=== PATIENT | female | born 1945 | race Caucasian/White ===

== ENCOUNTER → 2019-01-15 | Outpatient (CLI) | payer MEDICARE ==
[~2019-01-15] MED LIST: ACHYD1T PO; CIPR500T78 PO; DULO60CA6 PO; HYDR-3714 PO; HYDR-3876 PO; HYOS0.1216 PO; MELO-195 PO; NITR-65 PO; NITR100C3 PO; NITR100C44 PO; NITR50CA4 PO; OMEP20CA12 PO; PHEN200T27 PO; PREG225C PO; TORADOL PO
--- NOTE | 2019-01-15 16:13 | Diagnostic Imaging Report ---
EXAM: LUMBAR SPINE 2 OR 3 VIEW INDICATION: Low back pain. COMPARISON: None. FINDINGS: There are five lumbar-type vertebral bodies. Grade 1 anterolisthesis of L4 on L5. Moderate diffuse degenerative endplate changes and facet arthropathy. Age-indeterminate superior endplate compression deformity of T12 results in approximately 20% height loss. Advanced lower lumbar facet arthropathies, greatest at L5-S1. Advanced atherosclerotic calcifications. The visualized pelvis is intact. IMPRESSION: 1. Superior endplate compression deformity of T12 approximately 20% is age-indeterminate. This could be better evaluated with MRI. 2. Moderate spondylotic changes including grade 1 anterolisthesis of L4 on L5. Advanced lower lumbar facet arthropathy. Dictated by: Dictated on workstation # [id number]
== END ==
LOC: RAD FS 15:32
PROVIDERS: ATTEND Nurse Practitioner Family
DX: M47.816 Spondylosis without myelopathy or radiculopathy, lumbar region (principal); M43.16 Spondylolisthesis, lumbar region; M46.86 Other specified inflammatory spondylopathies, lumbar region; M43.8X4 Other specified deforming dorsopathies, thoracic region
CPT/HCPCS: 72100

== ENCOUNTER → 2019-02-03 | Outpatient (CLI) | payer MEDICARE ==
[~2019-02-03] MED LIST changes: +GADOBUTROL 7.5 MMOL/7.5 ML (GADAVIST) VIAL IV ONE
--- NOTE | 2019-02-03 15:35 | Diagnostic Imaging Report ---
CLINICAL INDICATION: Patient with low back pain that radiates down both legs x3 weeks. No known injury. EXAM: MRI of the lumbar spine performed without and with 9 cc of Gadavist IV contrast. Sagittal T2, sagittal T1, sagittal T1 fat-sat, sagittal STIR, axial T1, axial T2, axial T1 post IV contrast, sagittal T1 post IV contrast, and sagittal T1 fat-sat post IV contrast. COMPARISON: X-ray of the lumbar spine dated 01/15/2019. FINDINGS: There is no abnormal IV contrast enhancement seen on this exam. There is no acute lumbar spine fracture. There is intraosseous hemangioma involving the left upper aspect of the T11 vertebra. Otherwise, there is no significant abnormal signal involving the lumbar spine. The visualized portions of the distal thoracic spinal cord, conus medullaris, and cauda equina nerve roots are unremarkable. The conus medullaris tip is seen at the L1-L2 intervertebral level. There are mildly hypertrophic spurs seen throughout the thoracolumbar spine. There is no significant paraspinal soft tissue abnormality. T11-T12: There is diffuse disc bulge and bilateral facet arthropathy. There is mild right neural foramen narrowing and mild central canal narrowing. T12-L1: There is mild bilateral facet arthropathy. There is no significant central spinal canal or neural foramen narrowing. L1-L2: There is minimal posterior disc bulge with moderate left facet arthropathy/hypertrophy and mild right facet arthropathy. There is left-sided ligamentum flavum buckling. There is no significant central canal narrowing. There is pbad-bl-cewqvtau right neural foramen narrowing and moderate left neural foramen narrowing. L2-L3: There is diffuse disc bulge with moderate loss of intervertebral disc height with moderate bilateral facet arthropathy. There is farc-ev-uqfvxwwr central canal narrowing, hunp-sa-ndhrsozw right neural foramen narrowing, and severe left neural foramen narrowing. L3-L4: There is diffuse disc bulge with superimposed central posterior disc extrusion/herniation with annular tear posteriorly. There is moderate loss of intervertebral disc height. There is wnop-rd-wraxvhbt bilateral facet arthropathy and ligamentum flavum buckling. There is moderate central canal stenosis, severe right neural foramen narrowing, and vocihnvg-kv-xrhjoa left neural foramen narrowing. L4-L5: There is grade 1 anterolisthesis of L4 on L5. There is mild diffuse disc bulge with severe bilateral facet arthropathy/hypertrophy. There is utizqbbw-tr-xkioso central canal narrowing. There is cpxqjqtq-bg-oehjos right neural foramen narrowing and mild left neural foramen narrowing. L5-S1: There is a mild diffuse disc bulge with moderate bilateral facet arthropathy with hypertrophic changes on the right side. There is no significant central canal narrowing. There is severe right neural foramen narrowing and no significant left neural foramen narrowing. IMPRESSION: 1: There is multilevel lumbar spine degenerative disease which is described in detail above. 2: There is grade 1 anterolisthesis of L4 on L5 with no pars defect. Dictated by: Dictated on workstation # [id number]
== END ==
LOC: RAD 13:41
PROVIDERS: ATTEND Nurse Practitioner Family
DX: M51.27 Other intervertebral disc displacement, lumbosacral region (principal); M46.97 Unspecified inflammatory spondylopathy, lumbosacral region; M43.16 Spondylolisthesis, lumbar region; M48.07 Spinal stenosis, lumbosacral region
CPT/HCPCS: 36415; 72158; 82565

== ENCOUNTER 2019-03-30 09:38 | Emergency (ER) | payer MEDICARE ==
[~2019-03-30] VITALS: Ht 157 cm; Wt 101.5 kg
[~2019-03-30 09:38] MED LIST changes: -GADOBUTROL 7.5 MMOL/7.5 ML (GADAVIST) VIAL IV ONE
[2019-03-30 10:00] LABS: WHITE BLOOD COUNT 8.1 10^3/uL (4.3-11.0)
[2019-03-30] MEDS ORDERED: NS IV 1000 ML 1,000 ML IV SCH (10:00)
[2019-03-30] MEDS ORDERED: DIAZEPAM 5 MG (VALIUM) TABLET PO ONE (10:00)
[2019-03-30] MEDS ORDERED: MECLIZINE 25 MG (ANTIVERT) TAB PO ONE (10:00)
[2019-03-30 10:01] LABS: BASOPHILS % (AUTO) 1 % (0-10); EOSINOPHILS % (AUTO) 1 % (0-10); HEMATOCRIT 39 % (35-52); HEMOGLOBIN 12.9 G/DL (11.5-16.0); LYMPHOCYTES % (AUTO) 36 % (12-44); MEAN CORPUSCULAR HEMOGLOBIN 30 PG (25-34); MEAN CORPUSCULAR HGB CONC 33 G/DL (32-36); MEAN CORPUSCULAR VOLUME 92 FL (80-99); MEAN PLATELET VOLUME 12.3 FL (7.4-10.4); MONOCYTES % (AUTO) 6 % (0-12); NEUTROPHILS % (AUTO) 56 % (42-75); PLATELET COUNT 201 10^3/uL (130-400)
[2019-03-30 10:02] LABS: BASOPHILS # (AUTO) 0.1 10^3/uL (0.0-0.1); EOSINOPHILS # (AUTO) 0.1 10^3/uL (0.0-0.3); LYMPHOCYTES # (AUTO) 2.9 X 10^3 (1.0-4.0); MONOCYTES # (AUTO) 0.5 X 10^3 (0.0-1.0); NEUTROPHILS # (AUTO) 4.5 X 10^3 (1.8-7.8)
[2019-03-30 10:24] LABS: PROTHROMBIN TIME PATIENT 13.2 SEC (12.2-14.7)
[2019-03-30 10:32] LABS: POTASSIUM 4.1 MMOL/L (3.6-5.0); SODIUM 138 MMOL/L (135-145)
[2019-03-30 10:33] LABS: ALANINE AMINOTRANSFERASE 15 U/L (0-55); ALKALINE PHOSPHATASE 93 U/L (40-136); BILIRUBIN,TOTAL 0.4 MG/DL (0.1-1.0); BUN/CREATININE RATIO 14; CALCIUM 9.5 MG/DL (8.5-10.1); CARBON DIOXIDE 23 MMOL/L (21-32); CHLORIDE 102 MMOL/L (98-107); CREATININE SERUM 0.63 MG/DL (0.60-1.30); GFR ESTIMATED > 60; GLUCOSE 105 MG/DL (70-105); TOTAL PROTEIN 7.4 GM/DL (6.4-8.2)
[2019-03-30 10:34] LABS: ALBUMIN 4.1 GM/DL (3.2-4.5)
--- NOTE | 2019-03-30 10:35 | ED General ---
General Chief Complaint: Dizziness/Syncope Stated Complaint: DIZZINESS; GAIT PROBLEM Nursing Triage Note: Patient has dizziness that started yesterday after bending over to pick something up. States the room was spinning and it made her nauseous and she did vomit once. The dizziness is better this morning but feels like her gait is off and she is unsteady when walking. Nursing Sepsis Screen: No Definite Risk History of Present Illness Date Seen by Provider: Mar 30, 2019 Time Seen by Provider: 10:31 Initial Comments Patient presenting to emergency department for evaluation of dizziness that has been going on since yesterday. She says in the morning yesterday she bent over to pick something up and as soon as she stood back up she felt intense vertiginous sensation that made her nauseated and threw up twice. The vertigo continued most of yesterday and it worsens whenever she would move or turn her head. She says it was better this morning when she woke up but she still had some room spinning sensation whenever she would try and walk but it seems to be improving as she was able to ambulate safely from her car to the emergency department entrance and then to room 1 with no obvious abnormal gait. She says that she is having no pain fevers chills shortness of breath vision changes difficulty speaking or confusion. She is in no obvious distress with normal vital signs. Allergies and Home Medications Allergies Coded Allergies: acetaminophen (Unverified Allergy, Mild, HIVES, 11/01/14) hydrocodone (Unverified Allergy, Mild, HIVES, 11/01/14) Home Medications Duloxetine Hcl 60 Mg Capsule.dr, 60 MG PO DAILY, (Reported) Meloxicam 15 Mg Tablet, 15 MG PO DAILY, (Reported) Nitrofurantoin/Nitrofuran Mac 100 Mg Capsule, 100 MG PO BID Prescribed by: FERDINAND JJ on 11/01/146 Omeprazole 20 Mg Capsule.dr, 20 MG PO DAILY, (Reported) Pregabalin 225 Mg Capsule, 225 MG PO BID, (Reported) [Toradol] , 10 MG PO Q6H Prescribed by: FERDINAND JJ on 11/01/14 1407 Patient Home Medication List Home Medication List Reviewed: Yes Review of Systems Review of Systems Constitutional: no symptoms reported EENTM: no symptoms reported Respiratory: no symptoms reported Cardiovascular: no symptoms reported Gastrointestinal: no symptoms reported Genitourinary: no symptoms reported Musculoskeletal: no symptoms reported Skin: no symptoms reported Psychiatric/Neurological: Other (dizziness) All Other Systems Reviewed Negative Unless Noted: Yes Past Dkrwfvt-Buulak-Kdkytj Hx Patient Social History Alcohol Use: Denies Use Recreational Drug Use: No Smoking Status: Never a Smoker 2nd Hand Smoke Exposure: No Recent Foreign Travel: No Contact w/Someone Who Travel: No Recent Infectious Disease Expo: No Physical Abuse: No Sexual Abuse: No Mistreated: No Fear: No Immunizations Up To Date Date of Pneumonia Vaccine: Mar 02, 2013 Seasonal Allergies Seasonal Allergies: No Past Medical History Surgeries: Yes (BILAT TKR, KIDNEY STONE X3) Respiratory: No Cardiac: No Neurological: No Genitourinary: Yes Kidney Stones Gastrointestinal: Yes (CONSTIPATION) Musculoskeletal: Yes (ARTHRITIS, FIBROMAGLIA) Degenerate Disk Disease, Arthritis, Fibromyalgia, Chronic Back Pain Endocrine: No HEENT: No Cancer: No Psychosocial: No Integumentary: No Blood Disorders: No Physical Exam Vital Signs Vital Signs - First Documented 03/30/19 09:44 Temp 35.7 Pulse 61 Resp 18 B/P (MAP) 178/77 (110) Pulse Ox 97 Capillary Refill : Less Than 3 Seconds Height, Weight, BMI Height: 5'2.00" Weight: 205lbs. oz. 92.516616ds; 41.00 BMI Method: General Appearance: No Apparent Distress, WD/WN Eyes: Bilateral Eye Normal Inspection HEENT: PERRL/EOMI, TMs Normal Neck: Supple Respiratory: Lungs Clear, No Respiratory Distress Cardiovascular: Regular Rate, Rhythm Gastrointestinal: Non Tender, Soft Back: Normal Inspection Extremity: Normal Capillary Refill Neurologic/Psychiatric: Alert, Oriented x3, No Motor/Sensory Deficits, Normal Mood/Affect, Other (Finger to nose, heel to kaba and gait all normal.) Skin: Warm/Dry Progress/Results/Core Measures Suspected Sepsis Recent Fever Within 48 Hours: No Infection Criteria Present: None New/Unexplained Altered Menta: No Sepsis Screen: No Definite Risk SIRS Temperature: Pulse: 61 Respiratory Rate: 18 Laboratory Tests 03/30/19 09:52: White Blood Count 8.1 Blood Pressure 178 /77 Mean: 110 Laboratory Tests 03/30/19 09:52: Creatinine 0.63, Platelet Count 201, Total Bilirubin 0.4 03/30/19 10:00: INR Comment 1.0 Results/Orders Lab Results Laboratory Tests Test 03/30/19 09:52 03/30/19 10:00 03/30/19 10:45 Range/Units White Blood Count 8.1 4.3-11.0 10^3/uL Red Blood Count 4.25 L 4.35-5.85 10^6/uL Hemoglobin 12.9 11.5-16.0 G/DL Hematocrit 39 35-52 % Mean Corpuscular Volume 92 80-99 FL Mean Corpuscular Hemoglobin 30 25-34 PG Mean Corpuscular Hemoglobin Concent 33 32-36 G/DL Red Cell Distribution Width 13.0 10.0-14.5 % Platelet Count 201 130-400 10^3/uL Mean Platelet Volume 12.3 H 7.4-10.4 FL Neutrophils (%) (Auto) 56 42-75 % Lymphocytes (%) (Auto) 36 12-44 % Monocytes (%) (Auto) 6 0-12 % Eosinophils (%) (Auto) 1 0-10 % Basophils (%) (Auto) 1 0-10 % Neutrophils # (Auto) 4.5 1.8-7.8 X 10^3 Lymphocytes # (Auto) 2.9 1.0-4.0 X 10^3 Monocytes # (Auto) 0.5 0.0-1.0 X 10^3 Eosinophils # (Auto) 0.1 0.0-0.3 10^3/uL Basophils # (Auto) 0.1 0.0-0.1 10^3/uL Sodium Level 138 135-145 MMOL/L Potassium Level 4.1 3.6-5.0 MMOL/L Chloride Level 102 98-107 MMOL/L Carbon Dioxide Level 23 21-32 MMOL/L Anion Gap 13 5-14 MMOL/L Blood Urea Nitrogen 9 7-18 MG/DL Creatinine 0.63 0.60-1.30 MG/DL Estimat Glomerular Filtration Rate > 60 BUN/Creatinine Ratio 14 Glucose Level 105 70-105 MG/DL Calcium Level 9.5 8.5-10.1 MG/DL Corrected Calcium 9.4 8.5-10.1 MG/DL Magnesium Level 2.0 1.6-2.4 MG/DL Total Bilirubin 0.4 0.1-1.0 MG/DL Aspartate Amino Transf (AST/SGOT) 20 5-34 U/L Alanine Aminotransferase (ALT/SGPT) 15 0-55 U/L Alkaline Phosphatase 93 40-136 U/L Troponin I < 0.30 <0.30 NG/ML Pro-B-Type Natriuretic Peptide 497.9 H <75.0 PG/ML Total Protein 7.4 6.4-8.2 GM/DL Albumin 4.1 3.2-4.5 GM/DL Prothrombin Time 13.2 12.2-14.7 SEC INR Comment 1.0 0.8-1.4 Activated Partial Thromboplast Time 27 24-35 SEC Urine Color PALE YELLOW Urine Clarity CLEAR Urine pH 7.5 5-9 Urine Specific [place] <=1.005 1.016-1.022 Urine Protein NEGATIVE NEGATIVE Urine Glucose (UA) NEGATIVE NEGATIVE Urine Ketones NEGATIVE NEGATIVE Urine Nitrite NEGATIVE NEGATIVE Urine Bilirubin NEGATIVE NEGATIVE Urine Urobilinogen 0.2 NORMAL MG/DL Urine Leukocyte Esterase 1+ H NEGATIVE Urine RBC (Auto) NEGATIVE NEGATIVE Urine RBC NONE /HPF Urine WBC 0-2 /HPF Urine Squamous Epithelial Cells 0-2 /HPF Urine Crystals NONE /LPF Urine Bacteria NEGATIVE /HPF Urine Casts NONE /LPF Urine Mucus NONE /LPF Urine Culture Indicated YES My Orders Orders - ISRAEL HARRY DO Cbc With Automated Diff (03/30/19 09:52) Comprehensive Metabolic Panel (03/30/19 09:52) Ua Culture If Indicated (03/30/19 09:52) Troponin I Fs (03/30/19 09:52) Magnesium (03/30/19 09:52) Partial Thromboplastin Time (03/30/19 09:52) Probnp Fs (03/30/19 09:52) Protime With Inr (03/30/19 09:52) Ekg Tracing (03/30/19 09:52) Ct Head Wo (03/30/19 09:52) Ns Iv 1000 Ml (Sodium Chloride 0.9%) (03/30/19 10:00) Diazepam Tablet (Valium Tablet) (03/30/19 10:00) Meclizine Tablet (Antivert Tablet) (03/30/19 10:00) Urine Culture (03/30/19 10:45) Medications Given in ED Current Medications Medications Dose Ordered Sig/Chucky Route Start Time Stop Time Status Last Admin Dose Admin Diazepam 5 mg ONCE ONCE PO 03/30/19 10:00 03/30/19 10:01 DC 03/30/19 10:03 5 MG Meclizine HCl 25 mg ONCE ONCE PO 03/30/19 10:00 03/30/19 10:01 DC 03/30/19 10:03 25 MG Vital Signs/I&O 03/30/19 09:44 Temp 35.7 Pulse 61 Resp 18 B/P (MAP) 178/77 (110) Pulse Ox 97 Capillary Refill : Less Than 3 Seconds Blood Pressure Mean: 110 POS Progress Note : Progress Note Symptoms are most consistent with a peripheral vertigo in my opinion given her symptoms come and go and are worse with movements of her head. Will check labs and head CT and treat with meclizine and Valium and reassess. Labs CT and urinalysis are all normal with no signs of acute pathology. Her repeat neurologic exam is normal and she was able to ambulate to the bathroom with no difficulty. I highly suspect this is a peripheral vertigo told I will treat her supportively with when necessary meclizine and Valium told to follow with PCP and/or ENT within 2-3 days and come back to the ED sooner if worsening pain neurologic changes or other general concerns. Patient aware and agreeable with plan for discharge and verbalized understanding of the above instructions. Departure Impression Primary Impression: Vertigo Disposition: 01 HOME, SELF-CARE Condition: Stable Departure-Patient Inst. Referrals: WILFRED MAX APRN (PCP) Primary Care Physician MARCUS BURROUGHS MD (Family) Primary Care Physician Patient Instructions: Vertigo (a Type of Dizziness) (DC) Scripts Diazepam (Valium) 5 Mg Tablet 5 MG PO TID PRN for VERTIGO, #7 TAB Prov: ISRAEL HARRY DO 03/30/19 Meclizine HCl (Meclizine HCl) 25 Mg Tablet 25 MG PO TID PRN for VERTIGO, #14 TAB Prov: ISRAEL HARRY DO 03/30/19 ISRAEL HARRY DO Mar 30, 2019 10:34 POS
--- NOTE | 2019-03-30 10:49 | Diagnostic Imaging Report ---
INDICATION: Dizziness, nausea, and unsteady gait. TECHNIQUE: Multiple contiguous axial images were obtained through the brain without the use of intravenous contrast. Auto Exposure Controls were utilized during the CT exam to meet ALARA standards for radiation dose reduction. COMPARISON: There is no prior study for comparison. FINDINGS: There are no extra-axial fluid collections. No intracranial hemorrhage. No intracranial mass or mass effect. No midline shift. There are scattered areas of low-density change in the deep white matter, compatible with chronic ischemic change. There is no definite acute abnormality. The calvarial windows show no overt bony abnormality. The visualized portions of the mastoid air cells and sinuses are well aerated. IMPRESSION: Mild chronic changes in the deep white matter. No acute hemorrhage, mass effect, or acute intracranial finding. Dictated by: Dictated on workstation # [id number]
[2019-03-30 10:57] LABS: BACTERIA,URINE NEGATIVE /HPF; BILIRUBIN,URINE NEGATIVE (NEGATIVE); CLARITY,URINE CLEAR; COLOR,URINE PALE YELLOW; GLUCOSE, URINE (UA) NEGATIVE (NEGATIVE); KETONES,URINE NEGATIVE (NEGATIVE); LEUKOCYTE ESTERASE ,URINE 1+ (NEGATIVE); NITRITE,URINE NEGATIVE (NEGATIVE); PH,URINE 7.5 (5-9); PROTEIN,URINE NEGATIVE (NEGATIVE); SQUAMOUS EPITHELIAL CELL,UR 0-2 /HPF; WBC,URINE 0-2 /HPF
[2019-03-30] MEDS ORDERED: DIAZ5TAB PO (12:06)
[2019-03-30] MEDS ORDERED: MECL-106 PO (12:06)
[2019-03-30 12:18] VITALS: BP 141/70
== END 2019-03-30 12:18 | disposition home or self-care (01) ==
LOC: EDUNIT# 09:38 → ER FS 09:39
DX: R42 Dizziness and giddiness (principal); M79.7 Fibromyalgia; Z88.5 Allergy status to narcotic agent; Z88.6 Allergy status to analgesic agent; Z87.442 Personal history of urinary calculi; Z96.653 Presence of artificial knee joint, bilateral
CPT/HCPCS: 36415; 70450; 80053; 81000; 83735; 83880; 84484; 85025; 85610; 85730; 87088; 93005; 96360

== ENCOUNTER → 2019-10-28 | Outpatient (CLI) | payer MEDICARE ==
[~2019-10-28] MED LIST changes: +DIAZ5TAB PO; +MECL-149 PO
--- NOTE | 2019-10-28 09:35 | Diagnostic Imaging Report ---
CLINICAL INDICATION: Patient with bilateral arm numbness. EXAM: X-ray of the cervical spine, 4 views including open-mouth view. COMPARISON: None. EXAM: Of note, part of the C6 and all the C7 vertebra is obscured on sagittal view due to overlapping anatomical structures. There is no acute cervical spine fracture or dislocation is visualized. There is straightening of the cervical spine posture. There is hypertrophic anterior spurs at C4-C6 levels. There is mild to moderate loss of disk space height at the C4-C5 and C5-C6 level. There is facet arthropathy. Odontoid view shows no significant abnormality. IMPRESSION: There is cervical spine degenerative disease with no gross acute fracture or dislocation. Dictated by: Dictated on workstation # [id number]
== END ==
LOC: RAD FS 09:08
PROVIDERS: ATTEND Nurse Practitioner Family
DX: M47.812 Spondylosis without myelopathy or radiculopathy, cervical region (principal)
CPT/HCPCS: 72050

== ENCOUNTER → 2020-06-08 | Outpatient (CLI) | payer MEDICARE ==
--- NOTE | 2020-06-08 16:04 | Diagnostic Imaging Report ---
INDICATION: Right knee pain. History of previous knee replacement COMPARISON: None. FINDINGS: 3 views of the right knee were obtained. Expected postoperative changes are seen from previous right knee total arthroplasty. Femoral and tibial components appear well-seated. There is no evidence of periprosthetic fracture. No unexpected radiopaque foreign bodies are identified. IMPRESSION: Expected postsurgical changes from previous right knee total arthroplasty, as described above. Dictated by: Dictated on workstation # [id number]
--- NOTE | 2020-06-08 16:10 | Diagnostic Imaging Report ---
INDICATION: Fall. Back pain. COMPARISON: MRI dated 02/03/2019 FINDINGS: Frontal and lateral views of the lumbar spine were obtained. Evaluation of static alignment shows slight grade 1 retrolisthesis at L3-L4. There is no evidence of jumped facets. Vertebral body heights are maintained. There is no acute fracture. There are moderate multilevel degenerative changes consistent with intervertebral disc height loss with endplate sclerotic changes and multilevel endplate osteophyte formations. There is also multilevel facet arthropathy. Included small bowel loops are nondistended. Note is made of calcified aortic atherosclerosis. IMPRESSION: 1. No acute fracture or dislocation of the lumbar spine. 2. Moderate multilevel degenerative changes. Dictated by: Dictated on workstation # [id number]
== END ==
LOC: RAD FS 15:15
PROVIDERS: ATTEND Nurse Practitioner Family
DX: M25.561 Pain in right knee (principal); M47.816 Spondylosis without myelopathy or radiculopathy, lumbar region; Z98.890 Other specified postprocedural states
CPT/HCPCS: 72100; 73562

== ENCOUNTER → 2021-10-23 | Outpatient (CLI) | payer MEDICARE ==
--- NOTE | 2021-10-23 16:47 | Diagnostic Imaging Report ---
INDICATION: Right knee pain. TECHNIQUE/COMPARISON: AP, oblique, and lateral views of the right knee were obtained and compared with 06/08/2020. FINDINGS: The right knee prosthesis appears in good alignment with no sign of fracture or device loosening. There is no acute bony abnormality. IMPRESSION: Stable right knee prosthesis with no acute abnormality. Dictated by: Dictated on workstation # [id number]
== END ==
LOC: RAD FS 15:18
PROVIDERS: ATTEND Nurse Practitioner Family
DX: Z00.00 Encounter for general adult medical examination without abnormal findings (principal); M25.561 Pain in right knee; Z96.651 Presence of right artificial knee joint
CPT/HCPCS: 73562